=== PATIENT | female | born 1980 | race Caucasian/White ===

== ENCOUNTER 2022-07-18 15:04 | Outpatient (CLI) | payer OTHER | END 2022-07-18 15:05 | disposition home or self-care (01) | LOC: ULT 15:04 | PROVIDERS: ATTEND Student in an Organized Health Care Education/Training Program | DX: N92.0 Excessive and frequent menstruation with regular cycle (principal); R39.15 Urgency of urination; N83.292 Other ovarian cyst, left side | CPT/HCPCS: 76856; 93976 ==